=== PATIENT | female | born 1970 | race Caucasian/White ===

== ENCOUNTER 2016-12-26 16:54 | Emergency (ER) | payer OTHER, MEDICAID ==
[2016-12-26 17:15] VITALS: BP 136/99
--- NOTE | 2016-12-26 17:22 | EDM.PDOC ---
ED HPI GENERAL MEDICAL PROBLEM - General Chief Complaint: Upper Extremity Injury/Pain Stated Complaint: PAIN RT HAND Time Seen by Provider: 12/26/16 17:08 - History of Present Illness INITIAL COMMENTS - FREE TEXT/NARRATIVE: HISTORY AND PHYSICAL: History of present illness: The patient is a 46-year-old female who presents with right wrist pain after she fell one hour ago tripping and landing on an outstretched arm. The patient says she was having a normal day prior to that with no systemic complaints and is of a history of diabetes. She said she took nothing for the pain and noticed some swelling and she is concerned and here for evaluation. This did happen while she was at work. She denies any impact to her head and no loss of consciousness. She has no head neck back or other extremity complaints. She did not hit her face. Patient has no distal hand pain or proximal elbow or shoulder pain on the right side and has no numbness or tingling in the hand. Review of systems: As per history of present illness and below otherwise all systems reviewed and negative. Past medical history: As per history of present illness and as reviewed below otherwise noncontributory. Surgical history: As per history of present illness and as reviewed below otherwise noncontributory. Social history: No reported history of drug or alcohol abuse. Family history: As per history of present illness and as reviewed below otherwise noncontributory. Physical exam: Gen.: Well-developed mildly overweight female who is nontoxic and speaking clearly and easily in the ED. HEENT: Atraumatic, normocephalic, no visible evidence of any facial swelling or trauma negative for conjunctival pallor or scleral icterus, mucous membranes moist, throat clear, neck supple, nontender, trachea midline. Lungs: Clear to auscultation, breath sounds equal bilaterally, chest nontender. Heart: S1S2, regular rate and rhythm no overt murmurs Abdomen: Soft, nondistended, nontender. NABS. Skin: Normal turgor no evidence of any rashes or lesions no diaphoresis Genitourinary: Deferred. Rectal: Deferred. Extremities: Atraumatic with no tenderness and full range of motion of all extremities with the exception of the right wrist where there is swelling at the dorsal aspect of the wrist and some mild tenderness on palpation but no bony deformities or malalignment is appreciated. There is no proximal forearm elbow or shoulder or clavicle tenderness or deformities and there is no distal hand or finger abnormalities tenderness or swelling appreciated. There is no ecchymosis or erythema at the wrist.. Neurovascular unremarkable. Neuro: Awake, alert, oriented. Cranial nerves II through XII unremarkable. Cerebellum unremarkable. Motor and sensory unremarkable throughout. Exam nonfocal. Diagnostics: Accu-Chek--- patient felt shaky and wanted her blood sugar checked, right wrist x-ray Therapeutics: Ice pack, patient defers pain medication in the ER; volar cockup splint, sling 175: I discussed the x-ray findings and the case with Dr Lainey Rosas and she would like a volar cock-up splint and she will see the patient in clinic. I discussed the testing results with the patient and the care plan for follow-up with the hand specialist and she is comfortable with that. I advised ice and elevation and will give her some [place] for pain to use as needed. Advised over- the-counter meds such as Motrin and Tylenol for during the day. Impression: Right hand fourth metacarpal base fracture, rule out triquetral fracture Definitive disposition and diagnosis as appropriate pending reevaluation and review of above. Right Wrist Pain Score (Numeric/FACES): 9 - Related Data Allergies Allergy/AdvReac Type Severity Reaction Status Date / Time No Known Allergies Allergy Verified 12/26/16 17:08 Home Meds: Home Meds Levothyroxine 175 mcg PO DAILY 10/18/13 [History] Loratadine [Claritin] 10 mg PO DAILY PRN 10/18/13 [History] Iron 1 tab PO ASDIRECTED 12/17/13 [History] Vitamin B Complex 100 mcg PO DAILY 12/17/13 [History] metroNIDAZOLE [Flagyl] 500 mg PO Q8H 10 Days tab 03/16/14 [Rx] Glimepiride 1 mg PO DAILY 12/26/16 [History] Insulin Aspart [NovoLOG] 100 unit INJECT DAILY 12/26/16 [History] Ranitidine HCl [Zantac] 300 mg PO DAILY 12/26/16 [History] atorvaSTATin [Lipitor] 20 mg PO DAILY 12/26/16 [History] Social & Family History - Tobacco Use Smoking Status *Q: Never Smoker Second Hand Smoke Exposure: No - Alcohol Use Days Per Week of Alcohol Use: 0 Number of Drinks Per Day: 0 Total Drinks Per Week: 0 - Recreational Drug Use Recreational Drug Use: No Drug Use in Last 12 Months: No Review of Systems - Review of Systems Review Of Systems: ROS reveals no pertinent complaints other than HPI. ED EXAM, GENERAL - Physical Exam Exam: See Below (See dictation) Course - Vital Signs Last Recorded V/S: Last Vital Signs Temp 36.4 C 12/26/16 17:12 Pulse 96 12/26/16 17:12 Resp 18 12/26/16 17:12 BP 136/99 H 12/26/16 17:12 Pulse Ox 100 12/26/16 17:12 - Orders/Labs/Meds Orders: Active Orders 24 hr Category Date Time Status Blood Glucose Check, Bedside [RC] ONETIME Care 12/26/16 17:17 Active Wrist Comp Min 3V Rt [CR] Stat Exams 12/26/16 17:17 Taken Labs: Laboratory Tests 12/26/16 Range/Units 17:22 POC Glucose 138 H (60-110) mg/dL Departure - Departure Time of Disposition: 18:18 Disposition: Home, Self-Care 01 Condition: Good Clinical Impression: Fracture of metacarpal bone Qualifiers: Encounter type: initial encounter Metacarpal bone: fourth Fracture type: closed Metacarpal location: base Fracture alignment: nondisplaced Laterality: right Qualified Code(s): S62.344A - Nondisplaced fracture of base of fourth metacarpal bone, right hand, initial encounter for closed fracture Fracture of triquetrum Qualifiers: Encounter type: initial encounter Fracture type: closed Fracture alignment: nondisplaced Laterality: right Qualified Code(s): S62.114A - Nondisplaced fracture of triquetrum [cuneiform] bone, right wrist, initial encounter for closed fracture - Discharge Information Referrals: PCP,None [Primary Care Provider] - Forms: ED Department Discharge Additional Instructions: The following information is given to patients seen in the emergency department who are being discharged to home. This information is to outline your options for follow-up care. We provide all patients seen in our emergency department with a follow-up referral. The need for follow-up, as well as the timing and circumstances, are variable depending upon the specifics of your emergency department visit. If you don't have a primary care physician on staff, we will provide you with a referral. We always advise you to contact your personal physician following an emergency department visit to inform them of the circumstance of the visit and for follow-up with them and/or the need for any referrals to a consulting specialist. The emergency department will also refer you to a specialist when appropriate. This referral assures that you have the opportunity for followup care with a specialist. All of these measure are taken in an effort to provide you with optimal care, which includes your followup. Under all circumstances we always encourage you to contact your private physician who remains a resource for coordinating your care. When calling for followup care, please make the office aware that this follow-up is from your recent emergency room visit. If for any reason you are refused follow-up, please contact the [facility] emergency department at and ask to speak to the emergency department charge nurse. [facility] Specialty clinic-Plastic Surgery and Hand Surgery Professional [address] [address] Please leave the splint that was placed on in the ER in place into you follow- up with our hand specialist Dr. Rosas. Use ice to the area for swelling and elevate and use [id number] medications such as Motrin or Tylenol and also use stronger pain medications when you are home as needed. Please call the clinic tomorrow for follow-up in the hand specialists office and return to ER as needed and as discussed. - My Orders Last 24 Hours: My Active Orders 12/26/16 17:17 Blood Glucose Check, Bedside [RC] ONETIME Wrist Comp Min 3V Rt [CR] Stat - Assessment/Plan Last 24 Hours: My Active Orders 12/26/16 17:17 Blood Glucose Check, Bedside [RC] ONETIME Wrist Comp Min 3V Rt [CR] Stat
--- NOTE | 2016-12-27 10:10 | CR ---
EXAM DATE: 12/26/16 PATIENT'S AGE: 46 Patient: ABHI BRYANT Facility: [place], [place] Site . Site : [id number] Study: XRay Extremity Right wrist [id number]/13/2017 5:36:42 PM Ordering Physician: Ede Izquierdo Final Report: INDICATION: Trauma. TECHNIQUE: Wrist radiograph 3 views COMPARISON: None FINDINGS: Transverse fracture of base of 4th metacarpal. Distal radius and ulna are intact. On lateral view, possible dorsal bony irregularity with adjacent soft tissue swelling, suspicious for triquetral fracture. IMPRESSION: 1. Right 4th metacarpal base fracture. 2. Possible triquetral fracture. Dictated by Fernando Paz MD @ 12/26/2016 5:52:55 PM Dictated by: Fernando Paz MD @ 12/26/2016 17:52:59 (Electronic Signature) Report Signed by Proxy. [email or web address]
== END 2016-12-26 18:30 | disposition home or self-care (01) ==
LOC: MW.ED 16:54
DX: S62.344A Nondisplaced fracture of base of fourth metacarpal bone, right hand, initial encounter for closed fracture (principal); S62.114A Nondisplaced fracture of triquetrum [cuneiform] bone, right wrist, initial encounter for closed fracture; Z79.4 Long term (current) use of insulin; Z79.899 Other long term (current) drug therapy; W01.0XXA Fall on same level from slipping, tripping and stumbling without subsequent striking against object, initial encounter; Y92.69 Other specified industrial and construction area as the place of occurrence of the external cause; Y99.0 Civilian activity done for income or pay
CPT/HCPCS: 73110-26-RT; 73110-RT; 82962; 99283